=== PATIENT | male | born 1950 | race Caucasian/White ===

== ENCOUNTER → 2023-08-22 15:41 | Outpatient (REF) | payer MEDICARE, OTHER, SELFPAY | LOC: RAD 15:41 | PROVIDERS: ATTENDING PHYSICIAN Family Medicine | DX: R07.9 Chest pain, unspecified (principal); M54.9 Dorsalgia, unspecified; D50.0 Iron deficiency anemia secondary to blood loss (chronic) | CPT/HCPCS: 71046; 72072 ==

== ENCOUNTER → 2023-11-14 14:22 | Outpatient (REF) | payer MEDICARE, OTHER, SELFPAY | LOC: RCS 14:22 | PROVIDERS: ATTENDING PHYSICIAN Family Medicine | DX: R07.9 Chest pain, unspecified (principal); I11.9 Hypertensive heart disease without heart failure; I51.7 Cardiomegaly; I45.10 Unspecified right bundle-branch block; I44.4 Left anterior fascicular block; I45.2 Bifascicular block; Z87.891 Personal history of nicotine dependence | CPT/HCPCS: 93017 ==

== ENCOUNTER → 2023-12-12 11:06 | Outpatient (REF) | payer MEDICARE, OTHER, SELFPAY | LOC: PAVMRI 11:06 | PROVIDERS: ATTENDING PHYSICIAN Family Medicine | DX: M54.9 Dorsalgia, unspecified (principal); R07.9 Chest pain, unspecified | CPT/HCPCS: 72146 ==

== ENCOUNTER 2024-03-10 20:31 | Emergency (ER) | payer MEDICARE, OTHER, SELFPAY ==
[2024-03-10 20:34] VITALS: BP 142/89
[2024-03-10 22:14] VITALS: BMI 27.5
--- NOTE | 2024-03-10 23:02 | ED.GENMED ---
History of Present Illness
General
Chief Complaint: Fever
Source: patient
Exam Limitations: none
Time Seen by Provider: 03/10/24 20:55
Nursing documentation reviewed up to this point in time: agreed with
History of Present Illness
History of Present Illness:
Patient to ED with complaint of ongoing chills and then drenching perspiration. States 1 week ago he developed generalized body aches. Reports shaking chills. he was seen at , had a chest xray and told he had 'walking pneumonia'. He
denied any CP, cough, SOB. He was placed on a z-pack and 5 day course of steroid. Both were completed on friday. States since then he reports feeling chilled followed by diaphoresis. Checked temp last nght, normal. Brought to eD by spouse for
eval. He is currently asymptomatic.
Past History
Past History
ED Past Medical History: HTN; Negative NIDDM
Social History
Tobacco: Former smoker
Alcohol: Other
Personal:
Living: with family
Employment: Employed
Family History
Family History: Negative Early CAD
Review of Systems
Review of Systems
Allergies reviewed?: Yes
All Other Systems: ROS reviewed and negative except as documented in HPI and ROS
Constitutional: Reports night sweats and chills
EENT: Reports no symptoms
Respiratory: Reports no symptoms
Cardiac: Reports no symptoms
ABD/GI: Reports no symptoms
: Reports no symptoms
Musculoskeletal: Reports no symptoms
Skin: Reports no symptoms
Neurological: Reports no symptoms
Psychiatric: Reports no symptoms
Phy Exam
General Physical Exam
General Presentation: well appearing and no apparent distress
General age: appears stated age
General Skin: warm and dry
General Habitus: normal
General Mental: alert
Cardiovascular Exam
Cardiovascular Exam: regular rate/rhythm and no edema
Pulmonary Exam
Pulmonary Exam: lungs clear and no respiratory distress
Gastrointestinal Exam
Gastrointestinal Exam: normal bowel sounds, non tender, soft, no organomegaly and non distended
Musculoskeletal Exam
Musculoskeletal Exam: full ROM and neuro vasc intact
Skin Exam
Skin Exam: normal color, warm/dry and no rash
Psychiatric Exam
Psychiatric Exam: normal mood/affect
Course
Orders/Labs/Results
Orders:
Orders
03/10/24 22:40
CR Chest - 2 Views Urgent
Comment:
Reason For Exam: fever
03/10/24 23:13
COVID-19 Antigen Urgent
Source: Nasal Swab
Complete Blood Count/With Diff Urgent
Comprehensive Metabolic Panel Urgent
Influenza A+B Rapid Molecular Urgent
CAT Source: Nasal Swab
Specimen Description:
Abnormal Lab Results
03/10/24
23:13
RBC 4.34 L 10^6/uL
(4.70-6.10)
Hgb 11.9 L g/dL
(13.0-18.0)
Hct 35.8 L %
(39.0-52.0)
RDW 14.7 H %
(11.5-14.5)
Abs Immat Gran (auto) 0.1 H 10^3/uL
(0-0.05)
Absolute Lymphs (auto) 1.1 L 10^3/uL
(1.2-3.4)
Absolute Monos (auto) 0.7 H 10^3/uL
(0.1-0.6)
Immature Gran % 1.2 H %
(0-0.5)
Lymphocytes % 15.6 L %
(20.5-51.1)
Monocytes % 10.7 H %
(1.7-9.3)
BUN 22 H mg/dl
(9-20)
Glucose 108 H mg/dl
(70-99)
03/10/24 23:13
03/10/24 23:13
Vital Signs
Initial and Last Documented VS:
Initial Vital Signs
Temp Pulse Resp BP Pulse Ox
99.9 F 79 16 142/89 99
03/10/24 20:34 03/10/24 20:34 03/10/24 20:34 03/10/24 20:34 03/10/24 20:34
Last Documented Vital Signs
Temp Pulse Resp BP Pulse Ox
98.9 F 78 17 138/88 98
03/11/24 00:26 03/11/24 00:00 03/11/24 00:00 03/11/24 00:00 03/11/24 00:00
*Radiology
Radiology exam reviewed: radiology read reviewed
*Pulse Oximetry
Patient hypoxic: no
*Critical Care Note
Total Time (30-74mins, 75-104mins- exclusive of procedures): Not Applicable
ED Attending Note
-
Portions of this chart may have been created with voice recognition software.� Occasional wrong word or��sound alike� substitutions may have occurred due to the inherent limitations of voice recognition software.
Discharge Plan
Departure
Patient Disposition: Home (Routine Discharge)
Date of Disposition: 03/11/24
Time of Disposition: 00:01
Patient with high blood pressure during this ER visit?: No
Condition: Good
Covid-19: Not Applicable
Discharge Problem:
Post viral syndrome
Instructions: Viral Syndrome (DC)
Prescriptions:
No Action
losartan 50 MG tablet
50 mg PO HS
tamsulosin 0.4 MG capsule
0.4 mg PO HS
amlodipine 10 MG tablet
10 mg PO HS
docosahexaenoic acid-epa 1 CAP capsule
2 cap PO HS
cholestyramine (with sugar) 4 GM powder in packet
4 gm PO DAILY
bupropion HCl 150 MG tablet extended release 24 hr
450 mg PO HS
multivitamin with folic acid [Tab-A-Lawrence] 1 TABLET tablet
1 tab PO HS
Referrals:
Elizabeth Olivares MD [Family Provider] - Follow up in 2-3 days
Interventions
Interventions:
*Risk Screen - Suicide Last Done: 03/10/24 20:34
*General Assessment Last Done: 03/10/24 22:14
*Neglect/Abuse Screening Last Done: 03/10/24 20:34
ED- Fall Risk Assessment Last Done: 03/10/24 22:14
*ED COVID-19 Vaccine History Last Done: 03/10/24 22:14
*Nursing Disposition Last Done: 03/11/24 00:26
ED- Neurological Assessment Last Done: 03/10/24 22:14
ED-Skin Assessment Last Done: 03/10/24 22:14
Discharge Date and Time
Discharge Date/Time: 03/11/24 00:26
Print Language: CHINESE
[2024-03-10 23:33] LABS: % Basophils 0.4 % (0-2); % Eosinophils 2.5 % (0-6); % Immature Granulocytes 1.2 % (0-0.5); % Lymphocytes 15.6 % (20.5-51.1); % Monocytes 10.7 % (1.7-9.3); % Neutrophils 69.6 % (42.2-75.2); Absolute Eosinophils 0.2 10^3/uL (0-0.7); Absolute Immature Granulocytes 0.1 10^3/uL (0-0.05); Absolute Lymphocytes 1.1 10^3/uL (1.2-3.4); Absolute Monocytes 0.7 10^3/uL (0.1-0.6); Absolute Neutrophils 4.7 10^3/uL (1.4-6.5); Hematocrit 35.8 % (39.0-52.0); Hemoglobin 11.9 g/dL (13.0-18.0); Mean Corp Hgb Conc. 33.2 g/dL (33.0-37.0); Mean Corpuscular Hgb 27.4 pg (27.0-31.0); Mean Corpuscular Volume 82.5 fL (80.0-94.0); Mean Platelet Volume 8.9 fL (7.4-10.4); Nucleated Red Blood Cells % 0 % (-); Platelet Count 223 10^3/uL (130-400); Red Blood Cell Count 4.34 10^6/uL (4.70-6.10); Red Cell Dist. Width 14.7 % (11.5-14.5); White Blood Cell Count 6.7 10^3/uL (4.8-10.8)
[2024-03-10 23:53] LABS: COVID-19 Antigen Negative (Negative)
[2024-03-10 23:55] LABS: ALT (SGPT) 27 U/L (0-50); AST (SGOT) 28 U/L (17-59); Albumin 3.9 g/dl (3.5-5.0); Alkaline Phosphatase 99 U/L (38-126); Blood Urea Nitrogen 22 mg/dl (9-20); Calcium 9.3 mg/dl (8.4-10.2); Carbon Dioxide 24 mmol/L (22-30); Chloride 101 mmol/L (98-107); Estimated Creatinine Clearance 59 ml/min; Glucose 108 mg/dl (70-99); Potassium 4.8 mmol/L (3.5-5.1); Sodium 136 mmol/L (135-145); Total Bilirubin 0.4 mg/dl (0.2-1.3); Total Protein 6.4 g/dl (6.3-8.2); eGFR > 60.00
[2024-03-11] VITALS: BP 138/88
== END 2024-03-11 00:26 | disposition home or self-care (01) ==
LOC: EMR 20:31
PROVIDERS: Nurse Practitioner; EMERGENCY PHYSICIAN Emergency Medicine; FAMILY PHYSICIAN Family Medicine
DX: R50.9 Fever, unspecified (principal); I10 Essential (primary) hypertension; Z87.891 Personal history of nicotine dependence; Z87.01 Personal history of pneumonia (recurrent)
CPT/HCPCS: 99284; 71046; 80053; 85025; 87502; 87811

== ENCOUNTER → 2024-04-13 14:16 | Outpatient (REF) | payer MEDICARE, OTHER, SELFPAY | LOC: RAD 14:16 | PROVIDERS: ATTENDING PHYSICIAN Internal Medicine Rheumatology; FAMILY PHYSICIAN Family Medicine | DX: L52 Erythema nodosum (principal) | CPT/HCPCS: 71260; 74160; Q9967 ==

== ENCOUNTER → 2024-06-02 08:18 | Outpatient (REF) | payer MEDICARE, OTHER, SELFPAY ==
[2024-06-02 09:14] LABS: PT 12.6 Sec (11.4-14.6)
[2024-06-02 09:15] LABS: APTT 30.5 Sec (23.4-35.0)
== END ==
LOC: SDSPAT 08:18
PROVIDERS: ATTENDING PHYSICIAN Internal Medicine Critical Care Medicine; FAMILY PHYSICIAN Family Medicine
DX: Z01.812 Encounter for preprocedural laboratory examination (principal); Z01.818 Encounter for other preprocedural examination
CPT/HCPCS: 36415; 85610; 85730

== ENCOUNTER → 2024-06-02 11:54 | Outpatient (REF) | payer MEDICARE, OTHER, SELFPAY | LOC: HWRAD 11:54 | PROVIDERS: ATTENDING PHYSICIAN Internal Medicine Critical Care Medicine; FAMILY PHYSICIAN Family Medicine | DX: R91.1 Solitary pulmonary nodule (principal) | CPT/HCPCS: 71250 ==

== ENCOUNTER → 2024-06-03 10:04 | Outpatient (REF) | payer MEDICARE, OTHER, SELFPAY | LOC: RAD 10:04 | PROVIDERS: ATTENDING PHYSICIAN Internal Medicine Critical Care Medicine; FAMILY PHYSICIAN Family Medicine | DX: R91.1 Solitary pulmonary nodule (principal); R59.0 Localized enlarged lymph nodes; R94.8 Abnormal results of function studies of other organs and systems; R94.2 Abnormal results of pulmonary function studies | CPT/HCPCS: 78306; A9503 ==

== ENCOUNTER 2024-06-07 06:04 | Day surgery (SDC) | payer MEDICARE, OTHER, SELFPAY ==
[2024-06-02 13:44] VITALS: BMI 26.9
[2024-06-07] VITALS (8 sets, daily range): BP systolic 107–143; BP diastolic 56–109; BMI 26.9; BMI 29.1
== END 2024-06-07 15:37 | disposition home or self-care (01) ==
LOC: SDS 06:04
PROVIDERS: ATTENDING PHYSICIAN Internal Medicine Critical Care Medicine
DX: R91.1 Solitary pulmonary nodule (principal); R93.89 Abnormal findings on diagnostic imaging of other specified body structures; R59.0 Localized enlarged lymph nodes; Z88.1 Allergy status to other antibiotic agents
CPT/HCPCS: 71045; 31623; 31624; 31628; 31629; 31652; 88172; 88173; 88305; 88312; 76000; 87015; 87070; 87102; 87116; 87205; 88112; 88177; 88333; 88341; 88342; 94640; C1887

== ENCOUNTER → 2025-01-07 11:07 | Outpatient (REF) | payer MEDICARE, OTHER, SELFPAY | LOC: HWRAD 11:07 | PROVIDERS: ATTENDING PHYSICIAN Internal Medicine Critical Care Medicine; FAMILY PHYSICIAN Family Medicine | DX: R91.1 Solitary pulmonary nodule (principal) | CPT/HCPCS: 71250 ==